=== PATIENT | male | born 1930 | race Caucasian/White ===

== ENCOUNTER → 2016-08-29 | Outpatient (CLI) | payer OTHER | END | disposition home or self-care (01) | LOC: CFH 12:34 | PROVIDERS: ATTEND Internal Medicine Cardiovascular Disease | DX: I25.9 Chronic ischemic heart disease, unspecified (principal); I42.9 Cardiomyopathy, unspecified | CPT/HCPCS: 78452; 93017; A9502 ==

== ENCOUNTER → 2016-08-30 | Outpatient (CLI) | payer OTHER | END | disposition home or self-care (01) | LOC: CFH 14:23 | PROVIDERS: ATTEND Internal Medicine Cardiovascular Disease | DX: I35.0 Nonrheumatic aortic (valve) stenosis (principal); I34.0 Nonrheumatic mitral (valve) insufficiency | CPT/HCPCS: 93306 ==

== ENCOUNTER 2016-10-15 10:23 | Observation (INO) | payer OTHER ==
[~2016-10-15] VITALS: Ht 175.3 cm; Wt 68.1 kg
[2016-10-15] MEDS ORDERED: BISACODYL 10 MG SUPP PR PRN (11:00)
[2016-10-15] MEDS ORDERED: ONDANSETRON 2MG/ML, 2ML IVPush PRN ×2 (11:00→13:30)
[2016-10-15] MEDS ORDERED: ASPIRIN 325 MG TABLET EC PO ONE (11:00)
[2016-10-15] MEDS ORDERED: BISACODYL 5 MG EC TABLET PO PRN (11:00)
[2016-10-15] MEDS ORDERED: PLEASE ENTER HEIGHT AND WEIGHT MC SCH (11:00)
[2016-10-15] MEDS ORDERED: ACETAMINOPHEN 325 MG TABLET PO PRN (11:00)
[2016-10-15] MEDS ORDERED: ZOLPIDEM 5MG TABLET PO PRN ×2 (11:00→13:30)
[2016-10-15] MEDS ORDERED: ASPIRIN 325 MG TABLET EC ONE (11:13)
[2016-10-15 11:16] LABS: HEMATOCRIT 53.5 % (39.2-51.8); HEMOGLOBIN 17.6 g/dL (13.7-18.0); WHITE BLOOD COUNT 7.6 x10^3/uL (3.4-10)
[2016-10-15] MEDS ORDERED: ASPI-496 PO (11:22)
[2016-10-15] MEDS ORDERED: GEMF600T3 PO (11:22)
[2016-10-15] MEDS ORDERED: IRBE75TA10 PO (11:22)
[2016-10-15] MEDS ORDERED: HYDR12.53 PO (11:22)
[2016-10-15] MEDS ORDERED: METO25TA91 PO (11:22)
[2016-10-15] MEDS ORDERED: CHOL500014 PO (11:22)
[2016-10-15] MEDS ORDERED: OMEG100023 PO (11:22)
[2016-10-15 11:31] LABS: BLOOD UREA NITROGEN 28 mg/dL (7-18)
[2016-10-15] MEDS ORDERED: FENTANYL PF 100 MCG/2ML ONE (11:38)
[2016-10-15] MEDS ORDERED: MIDAZOLAM 1 MG/ML, 5ML ONE (11:38)
[2016-10-15] MEDS ORDERED: NITROGLYCERIN 5 MG/ML, 10ML ONE (11:38)
[2016-10-15] MEDS ORDERED: LIDOCAINE 2%, 20ML ONE (11:38)
[2016-10-15] MEDS ORDERED: BIVALIRUDIN 250 MG ONE (12:34)
[2016-10-15] MEDS ORDERED: TICAGRELOR 90 MG TABLET ONE (12:34)
[2016-10-15] MEDS ORDERED: BIVALIRUDIN 250 MG in DEXTROSE 5% 50 ML IV SCH (13:06)
[2016-10-15] MEDS ORDERED: SODIUM CHLORIDE 0.9% 1,000 ML IV ONE (13:30)
[2016-10-15 16:32] VITALS: BP 136/84
[2016-10-15 21:00] VITALS: BP 118/72
[2016-10-15] MEDS: TICAGRELOR 90 MG TABLET PO SCH (21:24)
[2016-10-15] MEDS: ATORVASTATIN 40 MG TABLET PO SCH (21:24)
[2016-10-16 00:57] VITALS: BP 161/75
[2016-10-16 05:37] LABS: HEMATOCRIT 50.1 % (39.2-51.8); HEMOGLOBIN 16.6 g/dL (13.7-18.0)
[2016-10-16 05:46] LABS: BLOOD UREA NITROGEN 22 mg/dL (7-18)
[2016-10-16] MEDS ORDERED: METOPROLOL SUCCINATE 25 MG TAB.ER.24H PO SCH (06:00)
[2016-10-16 07:59] VITALS: BP 115/75
[2016-10-16] MEDS: IRBESARTAN 150 MG TABLET PO SCH (08:02)
[2016-10-16] MEDS: OMEGA-3/FISH OIL CAPSULE PO SCH (08:02)
[2016-10-16] MEDS: HYDROCHLOROTHIAZIDE 12.5 MG CAPSULE PO SCH (08:02)
[2016-10-16] MEDS: TICAGRELOR 90 MG TABLET PO SCH ×2 (08:02→20:42)
[2016-10-16] MEDS: GEMFIBROZIL 600 MG TABLET PO SCH (08:03)
[2016-10-16] MEDS: CHOLECALCIFEROL 1,000 UNIT TABLET PO SCH (08:06)
[2016-10-16] MEDS ORDERED: METOPROLOL SUCCINATE 25 MG TAB.ER.24H PO ONE (09:00)
[2016-10-16] MEDS ORDERED: ASPIRIN 81 MG TABLET EC PO ONE (09:00)
[2016-10-16] MEDS ORDERED: CHOLECALCIFEROL 1,000 UNIT TABLET PO SCH (09:00)
[2016-10-16 14:23] VITALS: BP 123/76
[2016-10-16 18:47] VITALS: BP 115/77
[2016-10-16] MEDS: ATORVASTATIN 40 MG TABLET PO SCH (20:42)
[2016-10-17 01:05] VITALS: BP 133/86
[2016-10-17] MEDS ORDERED: METOPROLOL SUCCINATE 50 MG TAB.ER.24H PO SCH (06:00)
[2016-10-17 06:08] VITALS: BP 116/77
[2016-10-17 08:00] VITALS: BP 119/73
[2016-10-17] MEDS: GEMFIBROZIL 600 MG TABLET PO SCH (08:24)
[2016-10-17] MEDS: OMEGA-3/FISH OIL CAPSULE PO SCH (08:24)
[2016-10-17] MEDS: IRBESARTAN 150 MG TABLET PO SCH (08:24)
[2016-10-17] MEDS: TICAGRELOR 90 MG TABLET PO SCH (08:24)
[2016-10-17] MEDS: HYDROCHLOROTHIAZIDE 12.5 MG CAPSULE PO SCH (08:25)
[2016-10-17] MEDS: CHOLECALCIFEROL 1,000 UNIT TABLET PO SCH (08:25)
[2016-10-17] MEDS ORDERED: ATOR40TA78 PO (08:38)
[2016-10-17] MEDS ORDERED: TICA90TA PO (08:38)
[2016-10-17] MEDS ORDERED: METO-93 PO (08:38)
== END 2016-10-17 12:30 | disposition home or self-care (01) ==
LOC: CACL 10:23 → ORIP 13:06 → 5SO 15:57 → DCLOUNGE 10-17 12:00
PROVIDERS: ADMIT Internal Medicine Cardiovascular Disease; ATTEND Internal Medicine Cardiovascular Disease
DX: I42.9 Cardiomyopathy, unspecified (principal); I25.119 Atherosclerotic heart disease of native coronary artery with unspecified angina pectoris; R93.1 Abnormal findings on diagnostic imaging of heart and coronary circulation; I35.0 Nonrheumatic aortic (valve) stenosis; E11.43 Type 2 diabetes mellitus with diabetic autonomic (poly)neuropathy; I47.0 Re-entry ventricular arrhythmia; I10 Essential (primary) hypertension; E78.5 Hyperlipidemia, unspecified
CPT/HCPCS: 36415; 80048; 82040; 85014; 85018; 85025; 85610; 85730; 93005; 93458; 99156; 99157; C1760; C1769; C1874; C1887; C1894; C9600; G0378; J0583; J2250; J3010; J3490; J7030; Q9967

== ENCOUNTER → 2017-06-17 | Outpatient (CLI) | payer OTHER ==
[~2017-06-17] MED LIST: ASPI-496 PO; ATOR40TA78 PO; CHOL500045 PO; GEMF600T3 PO; HYDR12.53 PO; IRBE75TA10 PO; METO-93 PO; METO25TA91 PO; OMEG100023 PO; TICA90TA PO
== END | disposition home or self-care (01) ==
LOC: CVU 12:44
PROVIDERS: ATTEND Internal Medicine Cardiovascular Disease
DX: I08.3 Combined rheumatic disorders of mitral, aortic and tricuspid valves (principal); I10 Essential (primary) hypertension; E78.5 Hyperlipidemia, unspecified; I42.9 Cardiomyopathy, unspecified; I25.2 Old myocardial infarction; Z95.5 Presence of coronary angioplasty implant and graft
CPT/HCPCS: 93306

== ENCOUNTER → 2018-07-25 | Outpatient (CLI) | payer MEDICARE ==
[~2018-07-25] MED LIST changes: -GEMF600T3 PO; +GEMF600T8 PO; +HYDR12.517 PO; -HYDR12.53 PO
== END | disposition home or self-care (01) ==
LOC: CFH 06:45
PROVIDERS: ATTEND Internal Medicine Cardiovascular Disease
DX: I08.3 Combined rheumatic disorders of mitral, aortic and tricuspid valves (principal); I10 Essential (primary) hypertension; E78.5 Hyperlipidemia, unspecified; I42.9 Cardiomyopathy, unspecified
CPT/HCPCS: 93306